=== PATIENT | female | born 1955 ===

== ENCOUNTER 2019-03-16 09:45 | Inpatient (IN) | payer OTHER ==
[~2019-03-16] VITALS: Ht 162.6 cm; Wt 81.6 kg
[2019-03-16] MEDS ORDERED: ATACAND HCT 321 EAC1 PO (12:47)
[2019-03-16] MEDS ORDERED: GLIMEPIRIDE2 MG PO (12:48)
[2019-03-16] MEDS ORDERED: NORVASC2.5 MG PO (12:48)
[2019-03-16] MEDS ORDERED: SINGULAIR10 MG PO (12:49)
[2019-03-16] MEDS ORDERED: LIPITOR20 MG PO (12:49)
[2019-03-25] MEDS ORDERED: CIPRO500 MG PO (07:52)
[2019-03-25] MEDS ORDERED: PERCOCET 5-3251 EACH PO (07:52)
[2019-03-25] MEDS ORDERED: ELIQUIS2.5 MG PO (07:52)
== END 2019-03-25 21:26 | DRG 470 ==
LOC: O/R 09:45 → SURG 03-22 05:00 → O/R 03-22 05:00 → SURG 03-22 13:47
PROVIDERS: ADMIT Orthopaedic Surgery
PROC: 0MNP0ZZ Release Left Knee Bursa and Ligament, Open Approach (ICD-10-PCS; 2019-03-22)
PROC: 3E0F7GC Introduction of Other Therapeutic Substance into Respiratory Tract, Via Natural or Artificial Opening (ICD-10-PCS; 2019-03-22)
PROC: 0SRD0J9 Replacement of Left Knee Joint with Synthetic Substitute, Cemented, Open Approach (ICD-10-PCS; principal; 2019-03-22 07:15)
DX: M17.12 Unilateral primary osteoarthritis, left knee (principal); J45.41 Moderate persistent asthma with (acute) exacerbation; D62 Acute posthemorrhagic anemia; M22.12 Recurrent subluxation of patella, left knee; M81.0 Age-related osteoporosis without current pathological fracture; I11.9 Hypertensive heart disease without heart failure; E11.9 Type 2 diabetes mellitus without complications; Z79.4 Long term (current) use of insulin